=== PATIENT | female | born 1960 | race Two or more races ===

== ENCOUNTER 2024-09-22 04:43 | Emergency (ER) | payer MEDICARE, OTHER ==
[~2024-09-22] VITALS: Ht 152.4 cm; Wt 108.8 kg
[2024-09-22] MEDS: methylPREDNISolone SOD SUCC 125 MG/2 ML VL IM ONE (05:09)
[2024-09-22] MEDS: diphenhdrAMINE HCL 50 MG/1 ML VL IV ONE (05:10)
[2024-09-22] MEDS: FAMOTIDINE (10MG/ML) 2ML VL IV ONE (05:10)
[2024-09-22] MEDS: methylPREDNISolone SOD SUCC 125 MG/2 ML VL IV ONE (05:19)
[2024-09-22] MEDS: SODIUM CHLORIDE 0.9% 1,000 ML IV ONE (05:19)
--- NOTE | 2024-09-22 05:25 | ED.PDOC ---
HPI Allergic reaction HPI Comments 64 YEAR OLD FEMALE PRESENTS TO ER WITH COMPLAINTS OF ALLERGIC REACTION X 1 DAY. PATIENT STATES SHE HAD EATEN SHRIMP AND STEAK AT 9 PM PRIOR TO ARRIVAL TO ER AND APPROXIMATELY 2 HOURS LATER STARTED EXPERIENCING ITCHY RED HIVES TO ABDOMEN, SENSATION OF TONGUE SWELLING, SHORTNESS OF BREATH AND ITCHY THROAT. STATES SHE HAS EATEN SHRIMP AND STEAK IN THE PAST WITHOUT ANY REACTION. DENIES ANY PAIN AND PRESENTS TO ER AMBULATORY ON ARRIVAL, WITH STEADY GAIT, IN NO DISTRESS, SPEAKING IN CLEAR AND COMPLETE SENTENCES WITH MILD URTICARIA NOTED TO ABDOMEN AND NO TONGUE SWELLING/ANGIOEDEMA APPRECIATED. DENIES N/V, CHEST PAIN, ABDOMINAL PAIN OR ANY FURTHER SYMPTOMS/COMPLAINTS Time Seen by MD: 05:05 Primary Care Provider: UNKNOWN Reviewed Notes: Nurses Notes, Medications, Allergies Allergies: Coded Allergies: Nitrofurantoin (Verified Allergy, Unknown, 09/22/24) Shrimp Flavor (Verified Allergy, Unknown, 09/22/24) Home Meds Active Scripts Prednisone (Prednisone) 20 Mg Tab, 20 MG PO BID for 5 Days, #10 TAB 0 Refills Prov:MICHELLE LEVIN 09/22/24 Diphenhydramine Hcl (Benadryl Allergy) 25 Mg Cap, 2 CAP PO Q6HPRN, #30 CAP 0 Refills Prov:MICHELLE LEVIN 09/22/24 Information Source: Patient Past Medical History PAST MEDICAL HISTORY: Arthritis (RA), HTN, Kidney Stones, Thyroid Surgical History: Family History Family History: Unknown Social History Smoker: Cigarettes, Less Than 1 Pack/Day Alcohol: Denies ETOH Use Drugs: Denies Drug Use Lives In: Home Constitutional: denies: chills, diaphoresis, fatigue, fever, malaise, sweats, weakness, others EENTM: reports: others ( STATED IN HPI) Respiratory: reports: others ( STATED IN HPI) Cardiovascular: denies: chest pain, dizzy spells, diaphoresis, Dyspnea on exertion, edema, irregular heart beat, left arm pain, lightheadedness, palpitations, PND, syncope, others Gastrointestinal: denies: abdomen distended, abdominal pain, blood streaked bowels, constipated, diarrhea, dysphagia, difficulty swallowing, hematemesis, m anson, nausea, poor appetite, poor fluid intake, rectal bleeding, rectal pain, vomiting, others Genitourinary: denies: abnormal vagina bleeding, burning, dyspareunia, dysuria, flank pain, frequency, hematuria, incontinence, pain, , vagina discharge, urgency, others Neurological: denies: dizziness, fainting, headache, left sided numbness, left sided weakness, numbness, paresthesia, pre-existing deficit, right sided numbness, right sided weakness, seizure, speech problems, tingling, tremors, weakness, others Musculoskeletal: denies: back pain, gout, joint pain, joint swelling, muscle pain, muscle stiffness, neck pain, others Integumetry: reports: others ( STATED IN HPI) Allergic/Immunocompromised: reports: others ( STATED IN HPI) Hematologic/Lymphatic: denies: anemia, blood clots, easy bleeding, easy bruising, swollen glands, others Endocrine: denies: excessive hunger, excessive sweating, excessive thirst, excessive urination, flushing, intolerance to cold, intolerance to heat, unexplained weight gain, unexplained weight loss, others Psychiatric: denies: anxiety, bipolar disorder, depression, hopeless, panic disorder, schizophrenia, sleepless, suicidal, others Physical Exam General Appearance: No Apparent Distress HEENT: Normal ENT Inspection, PERRL/EOMI, Pharynx Normal (No tongue swelling appreciated), TMs Normal Neck: Full Range of Motion, Non-Tender, Normal Respiratory: Chest Non-Tender, Lungs Clear, No Accessory Muscle Use, No Respiratory Distress, Normal Breath Sounds Cardiovascular: No Murmur, No Gallop, Regular Rate/Rhythm Breast Exam: Deferred Gastrointestinal: Non Tender, No Pulsatile Mass, Soft Genitalia: Deferred Pelvic: Deferred Rectal: Deferred Extremities: Normal capillary refill, Normal range of motion Neurologic: Alert, nematologist II-XII nml as Tested, No Motor Deficits, Normal Affect, Normal Mood, No Sensory Deficits Cerebellar Function: Normal Reflexes: Normal Skin: Dry, Warm, Other (Mild urticaria noted to abdomen. No angioedema/further skin changes noted) Peripheral Pulses: 2+ Radial (R), 2+ Radial (L), 2+ Brachial (R), 2+ Brachial (L) Lymphatic: No Adenopathy Was a procedure done? Was a procedure done?: No Sedation Sedation?: No Differential diagnosis (all) Differential Diagnosis: Anaphylaxis, Angioedema, Respiratory Failure X-Ray, Labs, Meds, VS Vital Signs Date Time Temp Pulse Resp B/P (MAP) Pulse Ox O2 Delivery O2 Flow Rate FiO2 09/22/24 06:30 98.4 94 16 137/67 (90) 93 98.4 09/22/24 06:30 94 16 93 Room Air* 0 21 09/22/24 05:26 98.8 102 22 143/75 (97) 90 98.8 09/22/24 05:26 22 90 Nasal Cannula* 2 28 Hep-lock IV ordered Solu-Medrol 125 mg IV ordered Benadryl 50 mg IV ordered Pepcid 20 mg IV ordered NS 1 L IV ordered Patient had improvement in symptoms, denied any shortness of breath, pulse ox 96% on RA and in no distress prior to discharge Advised on avoidance of steak/shrimp and to f/u with watchguard in 1-2 days Advised to f/u with PCP in 1-2 days Patient verbalized understanding and agreeable with current plan of care Advised to return to ER immediately if symptoms worsen Time of 1ST Reevaluation: 05:02 Reevaluation 1ST: N/A Patient Education/Counseling: Diagnosis, Treatment, Prognosis, Need For Follow Up Family Education/Counseling: Diagnosis, Treatment, Prognosis, Need For Follow Up Departure 1 Departure Time of Disposition: 05:42 Impression: Primary Impression: Allergic reaction Qualified Codes: T78.40XA - Allergy, unspecified, initial encounter Disposition: HOME / SELF CARE / HOMELESS Condition: Stable e-Prescriptions Prednisone (Prednisone) 20 Mg Tab 20 MG PO BID for 5 Days, #10 TAB 0 Refills Prov: MICHELLE LEVIN 09/22/24 Diphenhydramine Hcl (Benadryl Allergy) 25 Mg Cap 2 CAP PO Q6HPRN, #30 CAP 0 Refills Prov: MICHELLE LEVIN 09/22/24 Discharged With: Other (daughter) Critical Care Note Critical Care Time?: No Stability Stability form required: No Heart Score Heart Score: Heart Score Response (Comments) Value History N/A 0 EKG N/A 0 Age N/A 0 Risk Factors N/A 0 Troponin N/A 0 Total 0 MICHELLE LEVIN September 22, 2024 05:25
[2024-09-22] MEDS ORDERED: PRED20TA2 PO (05:45)
[2024-09-22] MEDS ORDERED: DIPH25CA66 PO (05:45)
[2024-09-22 06:30] VITALS: BP 137/67; PULSE 94; RESP 16; TEMP 98.4; O2SAT 93
== END 2024-09-22 06:56 | disposition home or self-care (01) ==
LOC: ER 04:46
DX: T78.49XA Other allergy, initial encounter (principal); I10 Essential (primary) hypertension; M06.9 Rheumatoid arthritis, unspecified; F17.210 Nicotine dependence, cigarettes, uncomplicated; Z98.890 Other specified postprocedural states; Z88.1 Allergy status to other antibiotic agents; Z88.8 Allergy status to other drugs, medicaments and biological substances; X58.XXXA Exposure to other specified factors, initial encounter
CPT/HCPCS: 96361; 96374; 96375; 99284; J1200; J2919; J3490; J7030